=== PATIENT | female | born 1945 | race Caucasian/White ===

== ENCOUNTER 2019-04-18 09:14 | Inpatient (IN) | payer OTHER, BC ==
[~2019-04-18] VITALS: Ht 165.1 cm; Wt 64.1 kg
[2019-04-18 09:18] VITALS: BP 130/63
[2019-04-18] MEDS ORDERED: OMEPRAZOLE 20 M20 M1 PO (09:36)
[2019-04-18] MEDS ORDERED: DESONIDE CR. 1515 G1 TOP (09:37)
[2019-04-18] MEDS ORDERED: BIOTIN5000 MCG PO (09:38)
[2019-04-18] MEDS ORDERED: FINASTERIDE5 MG PO (09:38)
[2019-04-18] MEDS ORDERED: SPIRONOLACTONE50 MG PO (09:39)
[2019-04-18] MEDS ORDERED: FOLIC ACID1 MG PO (09:39)
[2019-04-18] MEDS ORDERED: XARELTO20 MG PO (09:39)
[2019-04-18 09:51] LABS: BASOPHILS 0.2 % (0.0-2.0); HEMATOCRIT 40.2 % (37.0-47.0); HEMOGLOBIN 13.3 gm/dL (12.0-15.0); LYMPHOCYTES 6.9 % (24.0-44.0); MCH 31.4 pg (26.0-34.0); MCHC 33.1 g/dL (28.0-37.0); MCV 94.8 fL (80.0-100.0); MONOCYTES 10.8 % (1.0-8.0); PLATELET COUNT 165 thou/uL (150-400); POLYS 82.1 % (36.0-66.0); RBC 4.24 mil/uL (4.20-5.00); WBC 14.7 thou/uL (4.0-11.0)
[2019-04-18 10:00] LABS: CALCIUM 9.9 mg/dL (8.5-10.1); CREATININE 1.3 mg/dL (0.6-1.0); POTASSIUM 3.7 mmol/L (3.5-5.1)
[2019-04-18 12:31] VITALS: BP 116/56
[2019-04-18 21:20] VITALS: BP 116/71
--- NOTE | 2019-04-18 23:00 | NUR ---
Arrived from ER accompanied by around 2109. Right foot pain is 5/10 and verbalized relief of pain after pain med given in ER. Denies need for pain med at this time. Bed alarm on for safety.
[2019-04-19 00:03] VITALS: BP 116/71
--- NOTE | 2019-04-19 04:17 | NUR ---
Patient resting in bed at time of assuming care for patient. Patient alert and oriented x4. Pleasant and cooperative. Reports pain 3/10 to right foot. Right foot swollen, red in color. Pulses equal bilaterally. Saline lock to left AC present. Patient on room air. Heart rate regular. Patient has been able to rest quietly through the night and has not reported increase in pain.
[2019-04-19 05:00] VITALS: BP 122/84
[2019-04-19 05:45] LABS: HEMATOCRIT 36.5 % (37.0-47.0); MCH 31.4 pg (26.0-34.0); MCV 95.2 fL (80.0-100.0); RBC 3.83 mil/uL (4.20-5.00); RDW 12.1 % (10.5-14.5); WBC 11.1 thou/uL (4.0-11.0)
--- NOTE | 2019-04-19 05:58 | NUR ---
Patient up this AM to use BSC, continent of bladder, SBA x1 provided. Reported pain to right foot. Provided PRN Hydrocodone. Patient reports complete pain relief at follow up. Patient educated on available medication and use.
[2019-04-19 07:48] VITALS: BP 102/54
--- NOTE | 2019-04-19 15:14 | NUR ---
PT CARE ASSUMED APPROX 0700. ASSESSMENT CHARTED. PT DENIES PAIN AND SOA. VSS. UP WITH UNSTEADY GAIT. ASSIST X2. AT BEDSIDE. BOTH RECEIVED CLINICAL UPDATE AND DENY QUESTIONS AND CONCERNS REGARDING POC AND TRANSFER. PT TO TRANSFER AT THIS TIME TO . REPORT GIVEN AND RECEIVING NURSE DENIES QUESTIONS AND CONCERNS. PT IN ROUTE AT THIS TIME. NO DISTRESS NOTED THIS SHIFT. PT TOLERATING POC.
--- NOTE | 2019-04-19 16:12 | NUR ---
73 YO FEMALE TRANSFERED FROM [facility]. A&OX4, FORGETFUL AT TIMES. TRANSFERED TO BED FROM W/C WITH MAX ASSIST X1. IV INTACT IN L AC. R FT IS RED, WARM TO TOUCH AND SWOLLEN. SPOUSE AT THE BEDSIDE. PT GIVEN PO PAIN MED PAIN 01/24. ORIENTED OT TO ROOM/CALL LIGHT. EDUCATED PT ON DISEASE PROCESS AND TREATMENT RECEIVING. WILL CONT POC.
[2019-04-19 18:56] VITALS: BP 121/66
--- NOTE | 2019-04-20 03:23 | NUR ---
ASSUMED CARE OF PATIENT AT SHIFT CHANGE. ASSESSMENT CHARTED, MEDICATIONS GIVEN PER JUL. PRN PAIN MED GIVEN FOR PAIN VOICED 01/24. PATIENT IS ALERT TO HERSELF, SOMWEHAT TO TIME AND PLACE, BUT APPEARS FORGETFUL ABOUT SITUATION. PATIENT HAD A HARD TIME RECALLING HER DATE OF AND INSTEAD STARTED TO STATE HER SSN. PATIENT UP TO COMMODE X1 W/ MODERATE ASSIATANCE FROM THIS NURSE. PATIENT IS UNSTEADY AND HAD DIFFICULTY FOLLOWING COMMANDS D/T FORGETFULNESS. PATIENT STATED HER PAIN GETTING WORSE AT TIME OF TRANFER AND CANNOT BEAR WEIGHT ON IT W/O SCREAMING. SINCE NO OTHER PAIN MEDICATION WAS ON JUL, DR. GATES WAS NOTIFIED. PRN MORPHINE Q2HRS ORDERED. PATIENT TOLERATED WELL. SOON AFTER SPOUSE LEFT, PATIENT GOT OUT OF BED W/O CALLING FOR HELP AND WAS SCREAMING AND CURSING. PRN SEROQUEL ORDERED FOR BEDTIME FOR FURTHER AGITATION. PATIENT WAS SETTLED IN BED AND REASSURED OF PROPER CARE AND PAIN CONTROL. PATIENT DENIES OTHER NEEDS AT THIS TIME. BED ALARM IS ON, FALL PRECAUTIONS IN PLACE. FREQUENT ROUNDING ON THIS PATIENT. WILL CONTINUE TO MONITOR AND FOLLOW PLAN OF CARE
[2019-04-20 07:07] VITALS: BP 119/53
--- NOTE | 2019-04-20 09:01 | NUR ---
Nutrition: Assessed due to admit diagnosis of R foot cellulitis. After chart review, provider notes state NO wounds, only swelling and erythema noted - slightly better already since admit. On IV antibiotics. No weight hx to review for the last few years and no meal intakes yet available to see. Pt is on a regular, liberalized diet and at a healthy weight of 141# with BMI 23.5 kg/m2. Will keep as low nutrition risk for now and monitor for any skin changes or if new wound were to develop.
--- NOTE | 2019-04-20 11:56 | NUR ---
DISCHARGE PLANNING. DISCHARGE PLAN IS TO HOME WITH HOME HEALTH SERVICES. PATIENT REFERRAL FAXED TO [facility] FOR HH NEEDS PER REQUEST. CALL RECEIVED FROM [facility]. ACCEPTING OF PATIENT AT DISCHARGE. ABBY TO FACILITATE HOME HEALTH ONCE ORDERS RECEIVED. ANTICIPATED DISCHARGE PLANNED FOR TOMORROW OR WEDNESDAY. FOLLOWING. [facility] CONTACT NUMBER IS [phone] FAX [phone]
--- NOTE | 2019-04-20 12:07 | NUR ---
INITIAL ASSESSMENT: JUAN reviewed chart and spoke with nursing. Pt was admitted from home due to lower extremity cellulitis. Pt is currently on IV abx. Pt was transferred to [facility] yesterday and is progressing towards goals for discharge. PT/OT ordered today to evaluate pt for discharge needs. JUAN met with pt's spouse. Introduced role of SW. Pt and spouse live in their one-level home. No steps. Pt has a cane and walker at home. No hx of HH services or post-acute placement. Pt's PCP is Dr. Nice. JUAN discussed HH services with pt's spouse, who is agreeable. No preference voiced of HH agency. SW verified pt's home address and phone number. JUAN also provided pt's spouse with [facility] for additional services such as private duty care. Discharge home is anticipated in 1-2 days. JUAN is following to assist as needed with discharge planning.
[2019-04-20 12:49] VITALS: BP 119/53
[2019-04-20 14:48] VITALS: BP 126/67
[2019-04-21 00:26] VITALS: BP 102/52
--- NOTE | 2019-04-21 03:26 | NUR ---
ASSUMED PT CARE ON 04/20/19 APPROX 191. PT IS ALERT AND ORIETNED X4. PT IS SOMETIMES FORGETFUL. PT HAS A LEFT AC SALINE LOCKED. PT HAS BLE CELLULITIS. WHEN I ASKED THE PT IF SHE WAS IN PAIN AND SHE DENIES PAIN. BOTH LEGS WERE CLEANED FROM MID CALF TO THE TOES WITH NORMAL SALINE, TOPICAL CLOTRIMAZOLE 4X4 AND GAUZE WRAPPED ON BLE. FEET ELEVATED ON A PILLOW AND THE BED SETTING. WHEN I ENTER THE ROOM TO DO HOURLY ROUNDS PT IS STARTLED AND ASKS WHAT I AM DOING IN HER HOUSE. I EXPLAINED WHERE WE WERE AND PT SEEMS TO UNDERSTAND AGAIN. PT IS AWARE OF FALL PRECAUTIONS AND USE OF THE CALL LIGHT. PT IS IMPULSIVE AT TIMES AND WILL NOT USE THE CALL LIGHT. PT STRUGGLES WITH FOLLOWING DIRECTIONS ON HOW TO GET TO THE BEDSIDE CAMODE. AFTER GOING TO THE BEDSIDE CAMODE PT ASKS FOR PAIN MEDS AND I ADMINISTERED HYDROCODONE. WILL CONTINUE TO MONITOR.
[2019-04-21 07:28] VITALS: BP 135/66
--- NOTE | 2019-04-21 08:35 | NUR ---
SW discussed discharge plan with attending physician. Pt and spouse are agreeable with going to [facility]. cyber ops planner faxed referral to [facility]. SW notified [facility] liaison. SW is following to assist as needed with discharge planning.
[2019-04-21] MEDS ORDERED: CLOTRIMAZOLE-BE15 GM TOP (08:52)
[2019-04-21] MEDS ORDERED: ATORVASTATIN CA10 MG PO (08:52)
[2019-04-21] MEDS ORDERED: CEFDINIR300 MG PO (08:52)
[2019-04-21] MEDS ORDERED: HYDROCODON-ACE1 EAC7 PO (08:53)
== END 2019-04-21 16:03 | DRG 603 ==
LOC: ER 09:14 → 3W 12:48 → EROBS 12:48 → 3W 21:00 → 4N 04-19 15:15
PROVIDERS: Emergency Medicine; ADMIT Family Medicine
DX: L03.115 Cellulitis of right lower limb (principal); B35.3 Tinea pedis; M06.9 Rheumatoid arthritis, unspecified; Z86.718 Personal history of other venous thrombosis and embolism; Z88.8 Allergy status to other drugs, medicaments and biological substances; Z79.899 Other long term (current) drug therapy; Z87.891 Personal history of nicotine dependence
CPT/HCPCS: 10080; 10091

== ENCOUNTER → 2019-06-26 | Outpatient (CLI) | payer OTHER, BC ==
[~2019-06-26] MED LIST: ATORVASTATIN CA10 MG PO; BIOTIN5000 MCG PO; CEFDINIR300 MG PO; CLOTRIMAZOLE-BE15 GM TOP; DESONIDE CR. 1515 G1 TOP; FINASTERIDE5 MG PO; FOLIC ACID1 MG PO; HYDROCODON-ACE1 EAC7 PO; OMEPRAZOLE 20 M20 M1 PO; SPIRONOLACTONE50 MG PO; XARELTO20 MG PO
== END ==
LOC: SJCVCIMAG 13:18
DX: I73.9 Peripheral vascular disease, unspecified (principal); I77.1 Stricture of artery; Z78.0 Asymptomatic menopausal state

== ENCOUNTER 2019-10-20 11:33 | Emergency (ER) | payer OTHER, BC ==
[~2019-10-20] VITALS: Ht 165.1 cm; Wt 60.8 kg
[2019-10-20] MEDS ORDERED: NORCO 5-325 TA1 EAC1 PO (13:10)
[2019-10-20 13:12] LABS: ABSOLUTE NEUTROPHILS 5.1 thou/uL (1.4-8.2); BASOPHILS 0.2 % (0.0-2.0); HEMATOCRIT 37.2 % (37.0-47.0); HEMOGLOBIN 12.5 gm/dL (12.0-15.0); LYMPHOCYTES 9.6 % (24.0-44.0); MCHC 33.7 g/dL (28.0-37.0); MONOCYTES 2.2 % (1.0-8.0); PLATELET COUNT 187 thou/uL (150-400); RBC 4.04 mil/uL (4.20-5.00); RDW 12.5 % (10.5-14.5); WBC 5.8 thou/uL (4.0-11.0)
[2019-10-20 13:18] LABS: POTASSIUM 4.3 mmol/L (3.5-5.1)
[2019-10-20 13:24] LABS: ALBUMIN 3.6 g/dL (3.4-5.0); TOTAL BILIRUBIN 0.7 mg/dL (0.2-1.0); TOTAL PROTEIN 7.8 g/dL (6.4-8.2)
[2019-10-20 13:28] VITALS: BP 156/82
[2019-10-20 13:36] LABS: INR 1.1; PROTIME 11.7 Seconds (9.3-11.4)
== END 2019-10-20 13:31 | disposition home or self-care (01) ==
LOC: ER 11:33
PROVIDERS: Physician Assistant
DX: S76.812A Strain of other specified muscles, fascia and tendons at thigh level, left thigh, initial encounter (principal); S46.091A Other injury of muscle(s) and tendon(s) of the rotator cuff of right shoulder, initial encounter; M19.90 Unspecified osteoarthritis, unspecified site; Z90.49 Acquired absence of other specified parts of digestive tract; Z86.718 Personal history of other venous thrombosis and embolism; Z79.01 Long term (current) use of anticoagulants; Z79.899 Other long term (current) drug therapy; Z88.8 Allergy status to other drugs, medicaments and biological substances; Z87.891 Personal history of nicotine dependence; X58.XXXA Exposure to other specified factors, initial encounter; Y93.89 Activity, other specified; Y92.89 Other specified places as the place of occurrence of the external cause; Y99.9 Unspecified external cause status

== ENCOUNTER → 2020-01-09 | Outpatient (CLI) | payer OTHER, BC ==
[~2020-01-09] MED LIST changes: +NORCO 5-325 TA1 EAC1 PO
== END ==
LOC: NUC 10:09
PROVIDERS: ATTEND Nurse Practitioner
DX: M85.88 Other specified disorders of bone density and structure, other site (principal); M81.0 Age-related osteoporosis without current pathological fracture